=== PATIENT | female | born 1960 | race Caucasian/White ===

== ENCOUNTER → 2017-08-18 | Outpatient (CLI) | payer OTHER ==
--- NOTE | 2017-08-18 11:27 | Diagnostic Imaging Report ---
INDICATION: Chronic pain. COMPARISON: 11/14/2013. FINDINGS: Two views of the right knee are obtained. No acute fracture, malalignment or osseous destructive process is seen. Joint spaces are preserved. There is mild marginal spurring of the medial lateral patellofemoral compartment. There may be a small joint effusion. IMPRESSION: There are mild tricompartment degenerative spurring with possible small joint effusion. No acute osseous abnormality is suspected. Dictated by: Dictated on workstation # [id number]
--- NOTE | 2017-08-18 13:28 | Diagnostic Imaging Report ---
CLINICAL INDICATION: Patient with chronic pain. EXAM: X-ray of the lumbar spine, 3 views. COMPARISON: None. FINDINGS: There is no acute lumbar spine fracture. There is roughly 2 mm of grade 1 anterolisthesis of L4 on L5. There is no pars defect seen. The remainder of the lumbar spine shows normal alignment. There is minimal spurring involving the lower lumbar spine. There is mild lower lumbar spine facet arthropathy. There is mild to moderate loss of intervertebral disc height at the L4-5 and L5-S1 levels. The sacroiliac joints show minor spurring. Surgical clips are seen overlying the right upper quadrant which could be related to cholecystectomy changes. IMPRESSION: 1. There is grade 1 anterolisthesis of L4 on L5 with no pars defect. 2. 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 Dictated by: Dictated on workstation # [id number]
== END ==
LOC: RAD 10:33
PROVIDERS: ATTEND Emergency Medicine
DX: M17.11 Unilateral primary osteoarthritis, right knee (principal); M47.816 Spondylosis without myelopathy or radiculopathy, lumbar region; M43.16 Spondylolisthesis, lumbar region
CPT/HCPCS: 72100; 73560